=== PATIENT | female | born 1995 | race Caucasian/White ===

== ENCOUNTER 2024-01-31 14:55 | Emergency (ER) | payer OTHER ==
[~2024-01-31] VITALS: Ht 162.6 cm; Wt 59.0 kg
[2024-01-31 15:12] VITALS: BP_SYST 103; PULSE 62; RESP 18; TEMP 98.5; O2SAT 99
[2024-01-31 17:54] VITALS: BP_SYST 103; PULSE 62; RESP 18; TEMP 98.5; O2SAT 99
== END 2024-01-31 17:53 | disposition home or self-care (01) ==
LOC: SED 14:55
DX: S09.8XXA Other specified injuries of head, initial encounter (principal); R11.2 Nausea with vomiting, unspecified; R42 Dizziness and giddiness; Y04.0XXA Assault by unarmed brawl or fight, initial encounter; Y93.89 Activity, other specified; Y92.89 Other specified places as the place of occurrence of the external cause; Y99.8 Other external cause status
CPT/HCPCS: 70450-TC; 99284